=== PATIENT | male | born 1985 | race Caucasian/White ===

== ENCOUNTER 2024-04-09 10:30 | Outpatient (RCR) | payer OTHER, SELFPAY | END 2024-08-07 23:59 | disposition home or self-care (01) | PROVIDERS: PCP Family Medicine; Visit Provider Student in an Organized Health Care Education/Training Program | DX: M54.6 Pain in thoracic spine (principal); M54.2 Cervicalgia; G89.29 Other chronic pain; Z51.89 Encounter for other specified aftercare | CPT/HCPCS: 97110; 97140; 97162 ==